=== PATIENT | male | born 1985 | race Caucasian/White ===

== ENCOUNTER 2018-03-16 19:42 | Emergency (ER) | payer OTHER ==
[2018-03-16 19:56] VITALS: RESP 20; TEMP 97.5
[2018-03-16 20:34] VITALS: BP 151/101; PULSE 74; O2SAT 97
[2018-03-16] MEDS ORDERED: ONDANSETRON 4 MG ODT ONE (20:44)
[2018-03-16] MEDS ORDERED: ONDANSETRON 4 MG ODT BU ONE ×2 (20:46→20:47)
== END 2018-03-16 20:50 | disposition home or self-care (01) | DRG 392 ==
LOC: ED 19:42
DX: K59.01 Slow transit constipation (principal)
CPT/HCPCS: 74019; 99283; A9270-GY

== ENCOUNTER 2018-09-05 10:10 | Emergency (ER) | payer OTHER ==
[2018-09-05 10:44] VITALS: BP 132/88; PULSE 107; RESP 16; O2SAT 98
== END 2018-09-05 11:04 | disposition home or self-care (01) | DRG 563 ==
LOC: ED 10:10
DX: S52.612A Displaced fracture of left ulna styloid process, initial encounter for closed fracture (principal); W19.XXXA Unspecified fall, initial encounter; Y93.9 Activity, unspecified; Y92.9 Unspecified place or not applicable; Y99.9 Unspecified external cause status
CPT/HCPCS: 73110; 99282; 99283

== ENCOUNTER 2018-10-14 09:05 | Outpatient (CLI) | payer OTHER ==
[2018-09-05 10:44] VITALS: O2SAT 98
== END 2018-10-14 09:06 | disposition home or self-care (01) | DRG 561 ==
LOC: CONVCARE 09:05
PROVIDERS: ATTEND Orthopaedic Surgery
DX: S62.102D Fracture of unspecified carpal bone, left wrist, subsequent encounter for fracture with routine healing (principal)
CPT/HCPCS: 73100